=== PATIENT | female | born 1965 | race Hispanic/Latino ===

== ENCOUNTER → 2017-09-09 | Outpatient (CLI) | payer OTHER ==
[~2017-09-09] MED LIST: AMOXICILLIN250 MG PO; ASPIR 8181 MG PO; AUGMENTIN 875-1 EACH PO; FLUOXETINE HCL10 MG PO; FUROSEMIDE40 MG PO; GABAPENTIN400 MG PO; GLIPIZIDE ER10 MG PO; GLIPIZIDE5 MG PO; JANUMET XR 50-1 EAC1 PO; LOSARTAN POTASS25 MG PO; LYRICA50 MG PO; NAPROXEN500 MG PO; SIMVASTATIN20 MG PO; ULTRAM50 MG PO; VENTOLIN HFA18 GM INH; VIMOVO DR PO; VITAMIN D250000 UNIT PO; [UNRECOGNIZED DRUG - OTHER] PO
--- NOTE | 2017-09-09 12:36 | Diagnostic Imaging Report ---
Exam: Brain MRI without IV contrast History: Left-sided facial droop, Meng's palsy. Comparison studies: None Technique: Sagittal and axial T2 FS, axial and coronal T2 flair, axial DWI and axial T2*GRE. Intravenous contrast: None Findings: Scalp: Normal in signal. No masses. Bone marrow: Normal in signal intensity. Extra axial spaces: No mass, no fluid collection. Brain sulci: Appropriate for age. Ventricles: Normal in size. No hydrocephalus. Parenchyma: No abnormal signal intensities. No masses, hemorrhage, acute or chronic vascular insults. Suprasellar region: No abnormalities. Craniocervical junction: Patent foramen magnum. No Chiari malformation . Vessels: Normal flow-voids in the arteries and sinuses. 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 IMPRESSION: 1. Minimal supratentorial chronic microvascular ischemic changes. 2. No additional intracranial abnormalities. Please note, Meng's palsy is a clinical diagnosis and cannot adequately be evaluated by noncontrast brain MRI. If symptoms persist, brain-IAC MRI with IV contrast could be considered to further evaluate the facial nerves. Signed by: Dr. Dale Chang M.D. on 09/09/2017 12:33 PM
== END ==
LOC: MRI 11:12
PROVIDERS: ATTEND Psychiatry & Neurology Neurology
DX: G51.0 Bell's palsy (principal)
CPT/HCPCS: 70551

== ENCOUNTER → 2018-01-15 | Day surgery (SDC) | payer OTHER ==
[~2018-01-15] MED LIST changes: +ATORVASTATIN CA20 MG PO; +FARXIGA PO; +FENTANYL CITRATE/PF 100MCG/2 ML INJ ONE; +LORATADINE10 MG PO; +MIDAZOLAM HCL 2 MG/2 ML VIAL ONE; +NAPROXEN250 MG PO; +PROPOFOL IV EMULSION 10 MG/ML 50 ML VIAL ONE; +SYMBICORT 16010.2 GM INH
--- OUTSIDE RECORDS SUMMARY | 2018-01-15 09:28 | XMS REPORT ---
Author Author [facility] Address Unknown Phone Unavailable Care Team Providers Care Healthcare Liaison Name Role Phone TRAM SOW Unavailable Unavailable GRACE, DC Unavailable Unavailable EROS, LORRIE Unavailable Unavailable Problems This patient has no known problems. Allergies, Adverse Reactions, Alerts This patient has no known allergies or adverse reactions. Medications This patient has no known medications. Results Test Description Test Time Test Comments Text Results Atomic Results Result Comments MRI BRAIN WO [place] [address] Patient Name: DEVORAH ANDREWS MR #: [id number] : 1965 Age/Sex: 52/F Req # : [id number] Adm Physician: Ordered by: TRAM SOW M.D. Report #: [id number] Location: MRI Room/Bed: Procedure: [id number] MRI/MRI BRAIN WO Exam Date: Exam Time: REPORT STATUS: Signed Exam: Brain MRI without IV contrast History: Left- sided facial droop, Meng's palsy. Comparison studies: None Technique: Sagittal and axial T2 FS, axial and coronal T2 flair, axial DWI and axial T2* GRE. Intravenous contrast: None Findings: Scalp: Normal in signal. No masses. Bone marrow: Normal in signal intensity. Extra axial spaces: No mass, no fluid collection. Brain sulci: Appropriate for age. Ventricles: Normal in size. No hydrocephalus. Parenchyma: No abnormal signal intensities. No masses, hemorrhage, acute or chronic vascular insults. Suprasellar region: No abnormalities. Craniocervical junction: Patent foramen magnum. No Chiari malformation . Vessels: Normal flow-voids in the arteries and sinuses. 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 IMPRESSION: 1. Minimal supratentorial chronic microvascular ischemic changes. 2. No additional intracranial abnormalities. Please note, Meng's palsy is a clinical diagnosis and cannot adequately be evaluated by noncontrast brain MRI. If symptoms persist, brain-IAC MRI with IV contrast could be considered to further evaluate the facial nerves. Signed by: Dr. Kandy Chang M.D. on 09/09/2017 12:33 PM Dictated By: KANDY CHANG MD 1233 Transcribed By: JOSE on 09/09 1233 COPY TO: TRAM SOW M.D. CHEST 2 VIEWS [place] [address] Patient Name: DEVORAH ANDREWS MR #: [id number] : 1965 Age/Sex: 51/F Req # : [id number] Adm Physician: Ordered by: DC GRACE MD Report #: [id number] Location: MRI Room/Bed: Procedure: [id number] DX/CHEST 2 VIEWS Exam Date: 06/24/17 Exam Time: 1420 REPORT STATUS: Signed PROCEDURE: Frontal and lateral views of the chest. COMPARISON: [facility], DX, CHEST 2 VIEWS, 2016, 13:28. INDICATIONS: SHORTNESS OF BREATH FINDINGS: Lines/tubes: None. Lungs: The lungs are well inflated and clear. There is no evidence of pneumonia or pulmonary edema. Pleura: There is no pleural effusion or pneumothorax. Heart and mediastinum: The heart and the mediastinum are normal. Mild ossification of the aortic arch. Bones : No acute bony abnormality. Mild spondylosis of the thoracic spine. IMPRESSION: 1. No acute cardiopulmonary disease. Soren Santoyo M.D. Dictated by: Soren Santoyo M.D. on 06/24/2017 at 15: 22 Electronically approved by: Soren Santoyo M.D. on 06/24/2017 at 15:22 Dictated By: TALISHA SANTOYO MD, MD 1522 Transcribed By: ESCOBAR on 06/24 1522 COPY TO: DC GRACE MD MRI BRAIN WOW [place] [address] Patient Name: DEVORAH ANDREWS MR #: [id number] : 1965 Age/Sex: 51/F Req # : [id number] Adm Physician: Ordered by: DC GRACE MD Report #: [id number] Location: MRI Room/Bed: Procedure: [id number] MRI/MRI BRAIN WOW Exam Date: 06/24/17 Exam Time: 1445 REPORT STATUS: Signed EXAMINATION: MRI of the brain with and without contrast HISTORY: Left facial numbness, headaches, hypertension 2 weeks ago COMPARISON: Head CT on 06/18/2017 and brain MRI on 11/09/2016 TECHNIQUE: Pre-contrast: Sagittal T2; axial T1-IR, T2, MPGR, DWI, FLAIR; Post- contrast: axial and coronal T1. Intravenous contrast: 10 mL of Gadavist. IMAGE QUALITY: Adequate. FINDINGS: Parenchyma: 1. Unchanged mild white matter chronic microvascular ischemic changes. 2. Otherwise no abnormal signal intensity or enhancement.. 3. No mass or hemorrhage. No acute or chronic vascular insult. Skull: No abnormal signal intensity or enhancement. Major arteries: Expected flow voids present. Dural sinuses: Expected flow voids present. Ventricles: No hydrocephalus or displacement. Subarachnoid spaces: No abnormal signal intensity or enhancement. Brain volume: Normal for age. Foramen magnum: No mass, Chiari malformation, or basilar invagination. Sella: No gross mass. Paranasal/mastoid sinuses: Unremarkable. IMPRESSION: 1. No acute infarct or intracranial hemorrhage. 2. Unchanged mild chronic microvascular ischemic changes. Signed by: Dr. Eleazar Nesbitt M.D. on 06/24/2017 6:05 PM Dictated By: ELEAZAR NESBITT MD 04 Transcribed By: JOSE on 06/24/171804 COPY TO: DC GRACE MD CHEST 2 VIEWS [place] [address] Patient Name: DEVORAH ANDREWS MR #: [id number] : 1965 Age/Sex: 51/F Req # : [id number] Adm Physician: Ordered by: LORRIE COONEY MD Report #: [id number] Location: Room/Bed: Procedure: [id number] DX/CHEST 2 VIEWS Exam Date: Exam Time: REPORT STATUS: Signed PROCEDURE: Frontal and lateral views of the chest. COMPARISON: 11/08/16 INDICATIONS: DIZZINESS FINDINGS: Lines/tubes: None. Lungs: The lungs are well inflated and clear. There is no evidence of pneumonia or pulmonary edema. Pleura: There is no pleural effusion or pneumothorax. Heart and mediastinum: The heart and the mediastinum are normal. Bones: No acute bony abnormality. IMPRESSION: 1. No acute cardiopulmonary disease. Dictated by: Ye Weeks M.D. on 06/18/2017 at 15:04 Electronically approved by: Ye Weeks M.D. on 06/18/2017 at 15:04 Dictated By: YE WEEKS MD 1504 Transcribed By: ESCOBAR on 06/18/17 1504 COPY TO: LORRIE COONEY MD CT BRAIN WO [place] [address] Patient Name: DEVORAH ANDREWS MR #: [id number] : 1965 Age/Sex: 51/F Req # : [id number] Adm Physician: Ordered by: LORRIE COONEY MD Report #: [id number] Location: ER Room/Bed: Procedure: [id number] CT/CT BRAIN WO Exam Date: 06/18/17 Exam Time: 1426 REPORT STATUS: Signed Exam: Head CT without contrast History: Left- sided numbness Comparison studies: Brain MRI 11/09/[address] 11/12/2016 Technique: Axial images were obtained from the skull base to the vertex. Coronal and sagittal images reconstructed from the axial data. Intravenous contrast: None Findings: Scalp: No abnormalities. Bones : No fractures, blastic or lytic lesions. Brain sulci: Appropriate for age. Ventricles: Normal in size and configuration. No hydrocephalus. Extra- axial spaces: No masses, no fluid collection. Parenchyma: No mass, acute hemorrhage or acute or chronic cortical vascular insults. A few subtle hypodensities in the supratentorial white matter are nonspecific but may reflect minimal chronic small vessel ischemic changes. Sellar/suprasellar region: No abnormalities. Craniocervical junction: Patent foramen magnum. No Chiari one malformation. IMPRESSION: 1. No acute intracranial abnormalities. 2. Mild supratentorial microvascular ischemic changes. 3. No changes from the previous head CT of 11/08/2016. Signed by: Dr. Kandy Chang M.D. on 06/18/2017 2:59 PM Dictated By: KANDY CHANG MD 58 Transcribed By: JOSE on 06/18/171458 COPY TO: LORRIE COONEY MD
--- NOTE | 2018-01-15 13:55 | Operative Report ---
DATE OF PROCEDURE: January 15, 2018 REFERRING PHYSICIAN: Dr. Linwood Iniguez PROCEDURE PERFORMED: Esophagogastroduodenoscopy with biopsies. INDICATIONS FOR ESOPHAGOGASTRODUODENOSCOPY: Upper abdominal pain, nausea and vomiting. MEDICATION: Patient was done under MAC. Please see anesthesiologist's note. PROCEDURE: With patient in left lateral decubitus position, flexible fiberoptic Olympus gastroscope was introduced into the esophagus under direct visualization without any difficulty. There was some patchy erythema noted in distal esophagus. The scope was then advanced with ease into the stomach. Mucosa overlying the antrum and the body revealed some diffuse erythema and mild to moderate edema and biopsies were obtained, sent to stain for H. pylori. Pylorus appeared to be of normal contour and shape. Was intubated with ease and the scope was advanced all the way to the 2nd portion of the duodenum. The scope was then withdrawn slowly. Mucosa overlying the proximal 2nd portion and the duodenal bulb appeared to be within normal limits. The scope was then withdrawn back into the stomach and retroflexed and mucosa overlying the fundus and the cardia appeared to be within normal limits. The scope was then straightened out. The stomach was decompressed. Scope subsequently withdrawn. Patient tolerated the procedure well. IMPRESSION 1. Distal esophagitis. 2. Gastritis, biopsied. Biopsies sent to stain for H. pylori. PLAN: Follow up histology. Initiate Protonix 40 mg 1 p.o. q.a.m and a.c. Job#: [id number] DG cc: Dr. Linwood Iniguez
== END | disposition home or self-care (01) ==
LOC: ENDO 09:26
PROVIDERS: ATTEND Internal Medicine Gastroenterology
DX: K29.50 Unspecified chronic gastritis without bleeding (principal); K20.9 Esophagitis, unspecified; B96.81 Helicobacter pylori [H. pylori] as the cause of diseases classified elsewhere; E11.9 Type 2 diabetes mellitus without complications; I10 Essential (primary) hypertension; J45.909 Unspecified asthma, uncomplicated; G47.00 Insomnia, unspecified; Z88.1 Allergy status to other antibiotic agents; Z88.5 Allergy status to narcotic agent; Z88.8 Allergy status to other drugs, medicaments and biological substances; Z01.810 Encounter for preprocedural cardiovascular examination; Z79.84 Long term (current) use of oral hypoglycemic drugs; Z79.82 Long term (current) use of aspirin; Z68.39 Body mass index [BMI] 39.0-39.9, adult; Z86.73 Personal history of transient ischemic attack (TIA), and cerebral infarction without residual deficits
CPT/HCPCS: 36415; 43239; 81025; 82948; 93005; J2250

== ENCOUNTER → 2018-02-28 | Outpatient (CLI) | payer OTHER ==
[~2018-02-28] MED LIST changes: -FENTANYL CITRATE/PF 100MCG/2 ML INJ ONE; -MIDAZOLAM HCL 2 MG/2 ML VIAL ONE; -PROPOFOL IV EMULSION 10 MG/ML 50 ML VIAL ONE
== END ==
LOC: MAMMO 09:22
PROVIDERS: ATTEND Internal Medicine
DX: Z12.31 Encounter for screening mammogram for malignant neoplasm of breast (principal)
CPT/HCPCS: 77067

== ENCOUNTER 2018-05-01 20:54 | Emergency (ER) | payer OTHER ==
[~2018-05-01] VITALS: Ht 304.8 cm; Wt 96.6 kg
[2018-05-01 21:15] LABS: BASOPHILS % 0.3 % (0.0-1.0); EOSINOPHILS # (AUTO) 0.2 (0.0-0.4); EOSINOPHILS % 2.9 % (0.0-6.0); HEMOGLOBIN 13.8 g/dL (12.0-16.0); LYMPHOCYTES # (AUTO) 1.9 (1.0-3.2); LYMPHOCYTES % 27.6 % (18.0-39.1); MEAN CORPUSCULAR HEMOGLOBIN 26.7 pg (28-32); MEAN CORPUSCULAR HGB CONC 31.4 g/dL (31-35); MEAN CORPUSCULAR VOLUME 85.3 fL (81-99); MONOCYTES # (AUTO) 0.6 (0.2-0.8); MONOCYTES % 8.4 % (4.4-11.3); NEUTROPHILS # (AUTO) 4.1 (2.1-6.9); NEUTROPHILS % 60.4 % (38.7-80.0); PLATELET COUNT 267 x10e3/uL (140-360); RED BLOOD COUNT 5.16 x10e6/uL (3.6-5.1); RED CELL DISTRIBUTION WIDTH 14.4 % (11.7-14.4)
[2018-05-01] MEDS ORDERED: ONDANSETRON HCL INJ 2 MG/ML VIAL IV ONE (21:22)
[2018-05-01] MEDS ORDERED: PANTOPRAZOLE 40 MG 10ML VIAL IV STA (21:22)
[2018-05-01] MEDS ORDERED: PANTOPRAZOLE 40 MG 10ML VIAL ONE (21:24)
[2018-05-01] MEDS ORDERED: SODIUM CHLORIDE 0.9% 1000ML 1,000 ML ONE (21:25)
[2018-05-01 21:29] LABS: BILIRUBIN,URINE NEGATIVE (NEGATIVE); CLARITY,URINE CLEAR (CLEAR); COLOR,URINE YELLOW (YELLOW); KETONES,URINE NEGATIVE (NEGATIVE); LEUKOCYTE ESTERASE ,URINE NEGATIVE (NEGATIVE); NITRITE,URINE NEGATIVE (NEGATIVE); PROTEIN,URINE DIPSTICK NEGATIVE (NEGATIVE); URINE UROBILINOGEN 0.2 mg/dL (0.2 - 1)
[2018-05-01] MEDS ORDERED: SODIUM CHLORIDE 0.9% 1000ML 1,000 ML IV ONE (21:30)
[2018-05-01 21:35] LABS: ALANINE AMINOTRANSFERASE 28 IU/L (0-55); ALBUMIN 4.1 g/dL (3.5-5.0); ALBUMIN/GLOBULIN RATIO 1.2 (0.8-2.0); ALKALINE PHOSPHATASE 79 IU/L (40-150); AMYLASE 146 U/L (25-125); BLOOD UREA NITROGEN 11 mg/dL (7-26); BUN/CREATININE RATIO 18 (6-25); CALCIUM 10.1 mg/dL (8.4-10.2); CARBON DIOXIDE 29 mmol/L (22-29); CHLORIDE 99 mmol/L (98-107); CREATINE KINASE 92 IU/L (29-168); CREATININE, SERUM 0.62 mg/dL (0.57-1.11); EST GLOMERULAR FILTRATION RATE > 60 ML/MIN (60-); GLUCOSE 185 mg/dL (74-118); LIPASE 94 U/L (8-78); SODIUM 139 mmol/L (136-145)
[2018-05-01 21:37] LABS: BACTERIA,URINE RARE /HPF; EPITHELIAL CELLS,URINE MODERATE /LPF; TRANSITIONAL EPI CELLS,URINE FEW
--- NOTE | 2018-05-01 21:53 | Diagnostic Imaging Report ---
EXAMINATION: CHEST SINGLE (PORTABLE) INDICATION: Fever, chills COMPARISON: 06/24/2017 FINDINGS: TUBES and LINES: None. LUNGS: Lungs are well inflated. Lungs are clear. There is no evidence of pneumonia or pulmonary edema. PLEURA: No pleural effusion or pneumothorax. HEART AND MEDIASTINUM: The cardiomediastinal silhouette is unremarkable. BONES AND SOFT TISSUES: No acute osseous lesion. Soft tissues are unremarkable. UPPER ABDOMEN: No free air under the diaphragm. IMPRESSION: No acute thoracic abnormality. Signed by: Dr. Jayant Alaniz M.D. on 05/01/2018 9:50 PM
--- NOTE | 2018-05-01 21:57 | Diagnostic Imaging Report ---
EXAMINATION: Head CT without contrast. HISTORY:Left-sided headache, dizziness and weakness. COMPARISON:Multiple prior studies, most recent CT brain from 06/18/2017 and MRI brain from 09/09/2017. TECHNIQUE: Multidetector axial images were obtained from the foramen magnum to the vertex without contrast. The images were reconstructed using brain and bone algorithms. Thin section brain images were reformatted into coronal and sagittal planes. Dose modulation, iterative reconstruction, and/or weight based adjustment of the mA/kV was utilized to reduce the radiation dose to as low as reasonably achievable. Intravenous contrast: None IMAGE QUALITY: Acceptable. FINDINGS: Skull/scalp: No lytic or blastic. lesions. No surgical changes. Parenchyma: Nonspecific few, scattered supratentorial white matter hypodensity likely related to small vessel ischemic changes. No acute hemorrhage, mass or acute major vascular territorial infarct. Arteries: No density suggestive of thrombosis. Dural sinuses: No abnormal density suggestive of thrombosis. Ventricles: No hydrocephalus or displacement. Extra-axial spaces: No abnormal density. Brain volume: Normal for age. Craniocervical junction: No mass, Chiari malformation, or basilar invagination. Sella: No mass. Paranasal/mastoid sinuses: Imaged portions unremarkable. 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 IMPRESSION: No acute intracranial abnormality. Minimal supratentorial white matter microvascular ischemic changes. Signed by: Dr. Leesa Johnston M.D. on 05/01/2018 9:54 PM
[2018-05-01] MEDS ORDERED: FARXIGA PO (22:07)
[2018-05-01 22:23] VITALS: BP 158/88
== END 2018-05-01 22:34 | disposition home or self-care (01) ==
LOC: ER 20:54
DX: R11.2 Nausea with vomiting, unspecified (principal); R51 Headache; I10 Essential (primary) hypertension; E11.9 Type 2 diabetes mellitus without complications; J45.909 Unspecified asthma, uncomplicated; E78.5 Hyperlipidemia, unspecified; E78.00 Pure hypercholesterolemia, unspecified
CPT/HCPCS: 36415; 70450; 71045; 80053; 81001; 82150; 82550; 82553; 83690; 84484; 85025; 93005; 99284; J2405; J7030

== ENCOUNTER → 2019-06-02 | Outpatient (CLI) | payer MEDICARE ==
--- NOTE | 2019-06-02 13:33 | Diagnostic Imaging Report ---
EXAMINATION: FOOT LEFT COMPLETE INDICATION: Heel pain COMPARISON: None FINDINGS: AP, lateral, and oblique images of the left foot were obtained. No acute fracture or dislocation. Alignment is anatomic. No substantial ankle joint effusion. Prominent plantar calcaneal spur and Achilles enthesopathy. The soft tissues appear unremarkable. IMPRESSION: No acute osseous injury. Prominent plantar calcaneal spur and Achilles enthesopathy. Signed by: Angela Eden MD on 06/02/2019 1:29 PM
== END ==
LOC: MAMMO 10:17 → MERGE 10:17
PROVIDERS: ATTEND Internal Medicine
DX: Z12.31 Encounter for screening mammogram for malignant neoplasm of breast (principal); M19.072 Primary osteoarthritis, left ankle and foot
CPT/HCPCS: 77067

== ENCOUNTER → 2019-10-28 | Outpatient (CLI) | payer OTHER ==
--- NOTE | 2019-10-28 15:37 | Diagnostic Imaging Report ---
EXAMINATION: CHEST 2 VIEWS INDICATION: Chronic bronchitis COMPARISON: None FINDINGS: LINES/TUBES:None LUNGS:The lungs are well-inflated. No focal consolidation or pulmonary edema. PLEURA:No pleural effusion or pneumothorax. MEDIASTINUM:The cardiomediastinal silhouette appears normal in size and shape. Atherosclerotic calcifications of the thoracic aorta. BONES/SOFT TISSUES:No acute osseous injury. ABDOMEN:No free air under the diaphragm. Status post cholecystectomy. IMPRESSION: No focal pneumonia or pulmonary edema. Signed by: Angela Eden MD on 10/28/2019 3:34 PM
== END ==
LOC: RAD 13:38
PROVIDERS: ATTEND Internal Medicine
DX: J41.0 Simple chronic bronchitis (principal)
CPT/HCPCS: 71046

== ENCOUNTER → 2020-10-26 | Outpatient (CLI) | payer MEDICARE, OTHER | LOC: MAMMO 11:17 | PROVIDERS: ATTEND Internal Medicine | DX: Z12.31 Encounter for screening mammogram for malignant neoplasm of breast (principal); J41.0 Simple chronic bronchitis | CPT/HCPCS: 71046; 77067 ==

== ENCOUNTER → 2021-07-24 | Outpatient (CLI) | payer MEDICARE, OTHER | LOC: CT 15:55 | PROVIDERS: ATTEND Internal Medicine | DX: G51.0 Bell's palsy (principal); R51.9 Headache, unspecified; Z86.73 Personal history of transient ischemic attack (TIA), and cerebral infarction without residual deficits | CPT/HCPCS: 70450 ==

== ENCOUNTER → 2021-09-06 | Outpatient (CLI) | payer MEDICARE, OTHER | LOC: RAD 14:50 | PROVIDERS: ATTEND Internal Medicine | DX: R09.1 Pleurisy (principal) | CPT/HCPCS: 71046 ==

== ENCOUNTER → 2021-09-20 | Outpatient (CLI) | payer MEDICARE, OTHER ==
[~2021-09-20] MED LIST changes: +IOPAMIDOL 370 MG/ML 200 ML INFUS..BTL INJ ONE; +SODIUM CHLORIDE 0.9% 50ML 50 ML ONE
[2021-09-20 14:35] LABS: CREATININE, SERUM 0.62 mg/dL (0.57-1.11)
== END ==
LOC: CT 13:23
PROVIDERS: ATTEND Internal Medicine
DX: R07.81 Pleurodynia (principal); R06.02 Shortness of breath; J42 Unspecified chronic bronchitis
CPT/HCPCS: 36415; 71260; 82565; 82948; 84520; Q9967

== ENCOUNTER → 2022-09-19 | Outpatient (CLI) | payer MEDICARE, OTHER ==
[~2022-09-19] MED LIST changes: -IOPAMIDOL 370 MG/ML 200 ML INFUS..BTL INJ ONE; -SODIUM CHLORIDE 0.9% 50ML 50 ML ONE
== END ==
LOC: US 09:25
PROVIDERS: ATTEND Internal Medicine
DX: Z12.31 Encounter for screening mammogram for malignant neoplasm of breast (principal); I11.9 Hypertensive heart disease without heart failure; R10.31 Right lower quadrant pain
CPT/HCPCS: 76830; 76856; 77067

== ENCOUNTER 2025-02-26 17:07 | Emergency (ER) | payer MEDICARE, OTHER ==
[~2025-02-26] VITALS: Ht 304.8 cm; Wt 96.6 kg
[2025-02-26 19:00] VITALS: PULSE 86; RESP 18; TEMP 98.9
[2025-02-26 20:23] LABS: BASOPHILS % 0.1 % (0.0-1.0); EOSINOPHILS % 2.6 % (0.0-6.0); LYMPHOCYTES % 19.4 % (18.0-39.1); MONOCYTES % 5.5 % (4.4-11.3); NEUTROPHILS % 72.0 % (38.7-80.0); RED CELL DISTRIBUTION WIDTH 12.9 % (11.7-14.4)
[2025-02-26 20:49] LABS: EST GLOMERULAR FILTRATION RATE 104 ML/MIN (>=60)
[2025-02-26] MEDS ORDERED: IOPAMIDOL 370 MG/ML 100 ML INFUS..BTL INJ ONE (20:53)
[2025-02-26 21:55] LABS: CORONAVIRUS COVID-19 AG NEGATIVE (NEGATIVE)
[2025-02-26] MEDS ORDERED: KETOROLAC TROME10 MG PO (22:29)
[2025-02-26] MEDS: METOCLOPRAMIDE HCL 10 MG/2ML VIAL IV STA (22:42)
[2025-02-26] MEDS: ONDANSETRON HCL INJ 2MG/ML 2ML 2 MG/ML VIAL IV STA (22:42)
[2025-02-26] MEDS: Morphine 4mg INJECTION 4 MG/ML INJ IV STA (22:43)
[2025-02-26] MEDS: SODIUM CHLORIDE 0.9% 1000ML 1,000 ML IV STA (22:43)
[2025-02-26 22:44] VITALS: BP 142/65; PULSE 74; RESP 17; TEMP 98.9; O2SAT 98
== END 2025-02-26 22:45 | disposition home or self-care (01) ==
LOC: ER 17:44
DX: R51.9 Headache, unspecified (principal); R11.2 Nausea with vomiting, unspecified; R10.13 Epigastric pain; I10 Essential (primary) hypertension; E11.9 Type 2 diabetes mellitus without complications; J45.909 Unspecified asthma, uncomplicated; E78.5 Hyperlipidemia, unspecified; E78.00 Pure hypercholesterolemia, unspecified; Z88.2 Allergy status to sulfonamides; Z88.8 Allergy status to other drugs, medicaments and biological substances
CPT/HCPCS: 36415; 70450; 74177; 80053; 82550; 83690; 84484; 85025; 87428; 93005; 99283; J2405; J2765; J7030; Q9967; J2270

== ENCOUNTER → 2025-05-28 | Outpatient (REF) | payer OTHER ==
[~2025-05-28] MED LIST changes: +KETOROLAC TROME10 MG PO
== END ==
LOC: MAMMO 10:36
PROVIDERS: ATTEND Internal Medicine
DX: Z12.31 Encounter for screening mammogram for malignant neoplasm of breast (principal)
CPT/HCPCS: 77067